=== PATIENT | male | born 1995 | race Caucasian/White ===

== ENCOUNTER 2023-04-12 08:55 | Emergency (ER) | payer MEDICAID, OTHER ==
[~2023-04-12] VITALS: Ht 180.3 cm; Wt 79.4 kg
[2023-04-12 08:59] VITALS: BP 110/54; PULSE 64; RESP 18; TEMP 97.6; O2SAT 100
[2023-04-12] MEDS ORDERED: IBUPROFEN 600 MG TAB PO ONE (09:30)
== END 2023-04-12 10:00 | disposition home or self-care (01) ==
LOC: MED 08:55
DX: M70.872 Other soft tissue disorders related to use, overuse and pressure, left ankle and foot (principal); M70.871 Other soft tissue disorders related to use, overuse and pressure, right ankle and foot
CPT/HCPCS: 99283